=== PATIENT | male | born 1935 | race Asian ===

== ENCOUNTER 2024-07-16 15:33 | Inpatient (IN) | payer MEDICARE, MEDICAID ==
[~2024-07-16] VITALS: Ht 162.6 cm; Wt 64.5 kg
[2024-07-16] MEDS ORDERED: Albuterol/Ipratropium 3 MG-0.5 MG/3 ML Neb Soln IH ONE (16:15)
[2024-07-16 16:27] LABS: BASO # 0.1 K/mm3 (0.0-0.2); BASO % 0.3 % (0.0-2.0); EOS # 0.1 K/mm3 (0.0-0.7); EOS % 0.5 % (0.0-4.0); GRAN # 14.3 K/mm3 (1.4-6.5); GRAN % 85.8 % (42.2-75.2); HEMATOCRIT 38.8 % (42.0-52.0); HEMOGLOBIN 11.8 g/dl (13.5-18.0); LYMPH # 1.3 K/mm3 (1.2-3.4); LYMPH % 7.9 % (20.0-51.0); MEAN CELL VOLUME 96 fl (80.0-100.0); MEAN CORPUSCULAR HEMOGLOBIN 29 pg (27-31); MEAN CORPUSCULAR HGB CONC 30 g/dl (33.0-37.0); MEAN PLATELET VOLUME 9.5 fl (7.4-10.4); MONO # 0.9 K/mm3 (0.1-0.6); MONO % 5.2 % (1.7-9.3); PLATELET COUNT 182 K/mm3 (130-400); RED BLOOD COUNT 4.05 M/mm3 (4.20-5.60); REDCELL DISTRIBUTION WIDTH-CV 12.5 % (11.5-14.5)
[2024-07-16 16:38] LABS: ALBUMIN 3.6 g/dL (3.4-4.8); BILIRUBIN,TOTAL 0.4 mg/dL (0.2-1.2); CREATININE, serum 1.22 mg/dL (0.72-1.25); POTASSIUM 5.2 mEq/L (3.5-4.5); TOTAL PROTEIN 7.1 g/dl (6.2-8.1)
[2024-07-16 16:44] LABS: TROPONIN-I 0.015 ng/mL (0.00-0.033)
[2024-07-16] MEDS ORDERED: NS 1,000 ML IV ONE (17:30)
[2024-07-16 17:58] LABS: ARTERIAL BLD GAS O2 SATURATION 97.4 % (92-100); ARTERIAL BLD GAS TCO2 CT 29.3; ARTERIAL BLOOD GAS BASE EXCESS 2.9 (-2-2); ARTERIAL BLOOD GAS PCO2 44.9 mmHg (35-45); ARTERIAL BLOOD GAS PO2 93.9 mmHg (80-100); ARTERIAL BLOOD GAS pH 7.41 (7.35-7.45)
[2024-07-16] MEDS ORDERED: ASPIRIN E.C. 8181 MG PO (18:27)
[2024-07-16] MEDS ORDERED: BREO ELLIPTA 21 EACH IH (18:28)
[2024-07-16] MEDS ORDERED: LEXAPRO20 MG PO (18:29)
[2024-07-16] MEDS ORDERED: PRIL40 PO (18:30)
[2024-07-16] MEDS ORDERED: LASIX 20MG TABL20 MG PO (18:30)
[2024-07-16] MEDS ORDERED: CALAN120 MG PO (18:31)
[2024-07-16] MEDS ORDERED: TYLENOL 500MG500 MG PO ×2 (18:32→19:00)
[2024-07-16] MEDS ORDERED: ALBUTEROL0.83 MG/ML IH (18:33)
[2024-07-16] MEDS ORDERED: MIRALAX PA17 GM/Dose PO (18:34)
[2024-07-16] MEDS ORDERED: REMERON30 MG PO (18:35)
[2024-07-16] MEDS ORDERED: ZYPREXA2.5 MG PO (18:36)
[2024-07-16] MEDS ORDERED: LAMICTAL 25MG T25 MG PO (18:49)
[2024-07-16] MEDS ORDERED: TYLENOL SU650 MG/SUP RC (18:52)
[2024-07-16] MEDS ORDERED: COZAAR 25MG25 MG/TAB PO (18:55)
[2024-07-16] MEDS ORDERED: IMODIUM 2MG CAPS2 MG PO (18:57)
[2024-07-16] MEDS ORDERED: MILK OF MA400 MG/52 PO (18:58)
[2024-07-16] MEDS ORDERED: ROBITUSSIN100 MG/5 M PO (18:58)
[2024-07-16] MEDS ORDERED: DULCOLAX TAB5 MG PO (18:58)
[2024-07-16] MEDS ORDERED: GENTLE LAXATIVE10 MG RC (18:58)
[2024-07-16] MEDS ORDERED: RICOLA HERB TH1 EACH MM (18:59)
[2024-07-16] MEDS ORDERED: ZOFRAN 4MG T4 MG/TAB PO (18:59)
[2024-07-16] MEDS ORDERED: MYLANTA MAXIMU355 M1 PO (18:59)
[2024-07-16] MEDS ORDERED: Bisacodyl 5 MG TAB PO PRN (19:00)
[2024-07-16] MEDS ORDERED: Acetaminophen 500 MG TAB PO PRN (19:00)
[2024-07-16] MEDS ORDERED: Formoterol 20 MCG,Budesonide 0.5 MG IH SCH (19:00)
[2024-07-16] MEDS ORDERED: guaiFENesin Oral Soln 200 MG/10 ML UD PO PRN (19:00)
[2024-07-16] MEDS ORDERED: lamoTRIgine 25 MG TAB PO SCH (19:30)
[2024-07-16] MEDS ORDERED: OLANZapine 5 MG TAB PO SCH (19:30)
[2024-07-16] MEDS ORDERED: Albuterol/Ipratropium 3 MG-0.5 MG/3 ML Neb Soln IH PRN (19:30)
[2024-07-16] MEDS ORDERED: Albuterol/Ipratropium 3 MG-0.5 MG/3 ML Neb Soln IH SCH (20:00)
--- NOTE | 2024-07-16 20:45 | NUR ---
PATIENT ARRIVED TO ROOM VIA BED FROM ED ACCOMPANIED BY CAREGIVER FROM [facility]. TRANSFERRED PATIENT WITH SLIDE BOARD AND CHANGED INTO FALL RISK GOWN. CAREGIVER ASSISTED TO BEST OF HER ABILITY WITH INTAKE DUE TO PATIENT'S ADVANCED DEMENTIA AND INABILTY TO ANSWER QUESTIONS. CAREGIVER STATES THAT PATIENT'S ONLY VOCALIZATIONS ARE YES, NO, AND HELP ME. CALL LIGHT IS WITHIN REACH. BED IS LOCKED AND IN LOW POSITION WITH BED ALARM ON.
[2024-07-16] MEDS ORDERED: Mirtazapine 15 MG TAB PO SCH (21:00)
[2024-07-16] MEDS ORDERED: Acetaminophen 500 MG TAB PO SCH (21:00)
[2024-07-16 21:01] VITALS: BP_SYST 98
[2024-07-16] MEDS ORDERED: NS 1,000 ML IV SCH (21:30)
--- NOTE | 2024-07-16 23:10 | NUR ---
PATIENT HAD BEEN YELLING OUT "HELP ME" AND WAS UNABLE TO BE CONSOLED DESPITE MULTIPLE ATTEMPTS BY THIS RN AND PCT ON UNIT. AT THIS TIME, PATIENT ALSO WOULD NOT KEEP HIS NASAL CANNULA ON, AGAIN DESPITE SEVERAL ATTEMPTS AT DIRECTING, AND HIS OXYGEN SATURATION WAS 81%. CALLED RT LYDIA WHO IS PRESENTLY AT BEDSIDE REASSESSING PATIENT. ALSO CONTACTED HOSPITALIST, SHAYAN BLAIR, AND RECEIVED TELEPHONE ORDER FOR 20 MG IV LASIX AND DC NORMAL SALINE.
[2024-07-16] MEDS ORDERED: Furosemide 40 MG/4 ML VIAL IV ONE (23:15)
--- NOTE | 2024-07-16 23:30 | NUR ---
HOSPITALIST, SHAYAN BLAIR MARBLE CHIP TERRAZZO WORKER, ASSESSED PATIENT AT BEDSIDE. AFTER ADMINISTERING IV LASIX AND STARTING HIS ZOSYN, HE BEGAN TO PULL ON HIS IV TUBING AND WAS ATTEMPTING TO STRIKE STAFF. SHAYAN GAVE VERBAL ORDER FOR BILATERAL MITTEN RESTRAINTS.
--- NOTE | 2024-07-16 23:30 | NUR ---
THIS RT CALLED TO BEDSIDE FOR DESATURATION, PT ON 2L. PT DIAPHORETIC, TACHNYPNEIC, AND SLOW TO RESPOND. PT READJUSTED IN BED AND SAT UP WHEN SATURATIONS BECOME 97% ON 2L. PT IS AUDIBLY WHEEZY, SOUNDING HIGH PITCHED AND ACCOMPANIED BY FINE CRACKLES IN BASE. SHAYAN Ro WRAPPING CLERK SPOKE TOO ABOUT PT CONDITION WHERE I EXPRESSED MY CONCERN ABOUT CHF/FLUID OL. SHE THEN ORDERED LASIX. PT STILL ON 2L AT THIS TIME.
[2024-07-17] VITALS (14 sets, daily range): BP systolic 105–152; BP diastolic 58–104; PULSE 67–109; TEMP 97.9–99.9
--- NOTE | 2024-07-17 | NUR ---
BILATERAL MITTEN RESTRAINTS APPLIED. SINCE PATIENT WILL NOW BE RECEIVING IV LASIX TWICE DAILY AND IS INCONTINENT OF URINE, VERBAL ORDER RECEIVED TO PLACE BATES CATHETER.
--- NOTE | 2024-07-17 00:22 | NUR ---
WITH ASSISTANCE OF TYPESETTER APPRENTICE AND PCT, 16F BATES CATHETER PLACED USING STERILE TECHNIQUE AND BALLOON INFLATED WITH 10CC NORMAL SALINE.
[2024-07-17] MEDS ORDERED: NS 1,000 ML IV SCH (01:30)
--- NOTE | 2024-07-17 01:44 | NUR ---
THIS RN AND PCT WERE ATTEMPTING TO CHANGE PATIENT'S UNDERPAD AND RECHECK VITAL SIGNS AFTER HE HAD CALMED DOWN FROM HIS PREVIOUS AGITATION. PREVIOUS BP PRIOR TO 20 MG IV LASIX WAS 156/104, WHEN RETAKING BP WAS 70s/30s, ELEVATED HIS HEAD AND NEW BP READING WAS 105/64. RT WAS AT BEDSIDE AT SAME TIME TO REASSESS HIS O2 LEVELS AND CALLED HOSPITALIST TO DISCUSS BP INTERVENTIONS. HOSPITALIST ADVISED ADVISED TO RESTART IV NORMAL SALINE AT 50 ML/HR.
--- NOTE | 2024-07-17 06:50 | NUR ---
Pt sleeping in bed with bilateral mitten restraints in place. Call light in reach and bed alarm on.
--- NOTE | 2024-07-17 07:35 | NUR ---
This RN notified Protective Signal Operations Supervisor of Pt's DNH paperwork from [facility]. Per Protective Signal Operations Supervisor, notify nursing home social worker when they arrive.
--- NOTE | 2024-07-17 08:10 | NUR ---
Pt laying in bed. Pt alert to name and birthdate. Unable to reorient Pt to location, situation, or time. S1S2. Clear lungs on 2 L via NC. VSS. ABD round, soft, non-tender with audble bowel sounds. Palpable pulses in all extremities. IV in R hand, patent, NS running at 50 cc/hr. Baker Catheter in place with clear, yellow urine. Bilateral mittens on, no issues. Pt repeats "Help Me Help Me" over and over. Pt does not elaborate or answer questions when nurse or aid ask what he needs help with. Completed daily hygiene, baker care and bed change. Pt laying on Left side supported with pillow. No further needs. Pad call light in reach.
[2024-07-17] MEDS ORDERED: Pantoprazole 40 MG in NS 10 ML IV SCH (09:00)
[2024-07-17] MEDS ORDERED: Furosemide 40 MG/4 ML VIAL IV SCH (09:00)
[2024-07-17] MEDS ORDERED: Escitalopram 10 MG TAB PO SCH (09:00)
--- NOTE | 2024-07-17 10:15 | NUR ---
ALEKS notified by LIZ Michael that patient has DNR/DNH forms on chart. She reports these forms were sent with patient from [facility]. ALEKS called and spoke with Andrea at [facility] who stated she would check on this and return call. She states that "family requested patient to be sent to hospital at the last minute". They are prepared to accept patient back when he is determined to be medically stable ALEKS reviewed chart, no family present. ALEKS attempted to call patient's Guardian/DPSTARR Shook ([phone]) to discuss discharge plan. No answer, unable to leave message. ALEKS attempted to call patient's son Vinod ([phone]), no answer, left message for return call. Per chart, patient resides at [facility], sees Dr. Govea as his PCP and uses [facility] pharmacy. Patient is only listed to use wheelchair. Patient has advanced dementia and unable to answer any questions. Patient will return to LTC at discharge.. Discharge plan: Return to [facility]
--- NOTE | 2024-07-17 12:26 | NUR ---
Clinicals faxed to [facility]. Spoke with Andrea at [facility] to notify patient not discharging back to LTC today.
[2024-07-17 12:32] LABS: BASO % 0.3 % (0.0-2.0); EOS # 0.1 K/mm3 (0.0-0.7); EOS % 0.6 % (0.0-4.0); GRAN # 10.2 K/mm3 (1.4-6.5); GRAN % 85.8 % (42.2-75.2); HEMOGLOBIN 10.7 g/dl (13.5-18.0); LYMPH % 8.2 % (20.0-51.0); MEAN CELL VOLUME 94 fl (80.0-100.0); MEAN CORPUSCULAR HEMOGLOBIN 29 pg (27-31); MEAN CORPUSCULAR HGB CONC 31 g/dl (33.0-37.0); MEAN PLATELET VOLUME 9.7 fl (7.4-10.4); MONO # 0.6 K/mm3 (0.1-0.6); MONO % 4.7 % (1.7-9.3); PLATELET COUNT 150 K/mm3 (130-400); RED BLOOD COUNT 3.71 M/mm3 (4.20-5.60); REDCELL DISTRIBUTION WIDTH-CV 12.8 % (11.5-14.5)
[2024-07-17 12:48] LABS: CREATININE, serum 1.15 mg/dL (0.72-1.25); MAGNESIUM 1.9 mg/dL (1.6-2.6); POTASSIUM 3.6 mEq/L (3.5-4.5)
--- NOTE | 2024-07-17 13:35 | NUR ---
Data: Spiritual care visit attempted during Spray Gunner rounds. RN was administering medications. Patient fell asleep before Spray Gunner could offer visit. Patient has white "mittens" to prevent him from pulling his IV tubing. RN stated that family is expected to visit tomorrow. Assessment: None at this time. Plan of Care: Chaplains will remain available as needed/requested while Patient is admitted to this hospital.
--- NOTE | 2024-07-17 17:08 | NUR ---
Pt became agitated. Tried to administer scheduled olanzapine. Pt refused. Pt removed mits from bilateral hands and started to unwrap IV site. Pt stated "Help me" multiple times. This RN asked Pt "How can we help you?" Pt would not respond. Pt denies being cold, in pain, does not require bathroom. Offered Pt water and applesauce, Pt declined. Mits back on Pt and letting rest. Call light in reach and bed alarm on.
--- NOTE | 2024-07-17 17:37 | NUR ---
Pt increased RR with shallow breathes. Pt lost color to face. Coached Pt through breathing. Pt's breathing returned to normal. Pt remained agitated and continued to pull mits off and pull at lines and Machado catheter. Minimal blood out of catheter. Pt started coughing and breathing heavily (shallow, increased rate). Contacted provider for alternative therapy. Provider notified that Pt continued to spit scheduled Zyprexa out of mouth, even when crushed and in applsauce/pudding. Per MONIKA Rojas, administer Zyprexa 5mg SL NOW. Contacted Retirement Plan Counselor to obtain medication, as not stocked in [facility].
[2024-07-17] MEDS ORDERED: OLANZapine 5 MG Orally-Disinteg TAB PO ONE (17:45)
--- NOTE | 2024-07-17 18:23 | NUR ---
Pt resting comfortably in bed. O2 and RR WNL. Pt refused water at this time. Call light in reach.
--- NOTE | 2024-07-17 19:59 | NUR ---
PATIENT RESTING IN BED WATCHING TV. BILATERAL MITTENS IN USE FOR LINE PROTECTION AND PATIENTS AGITATION. CALL LIGHT IS WITHIN REACH. BED IS LOCKED AND IN LOW POSITION WITH BED ALARM ON. CURRENTLY REFUSING TO FINISH HIS CRUSHED MEDICATIONS. WILL ATTEMPT TO ADMINISTER AGAIN ONCE HE HAS CALMED DOWN.
--- NOTE | 2024-07-17 21:27 | NUR ---
PATIENT CONTINUES TO YELL OUT, SCREAMING "HELP ME" BUT REFUSES ANY CARES AND WHEN RN ATTEMPTS TO PROVIDE CARE, HE STRIKES WITH HIS MITTED HANDS AND ATTEMPTS TO BITE. AGAIN ATTEMPTED TO GIVEN EVENING MEDS, PATIENT AGAIN SCREAMED IN RN'S FACE AND STATED "I SAID NO". CALL PLACED TO HOSPITALIST, SHAYAN BLAIR, TO DISCUSS POSSIBLE MANAGEMENT OF BEHAVIOR, HOSPITALIST IS GOING TO DISCUSS WITH PHARMACY TO SEE WHAT MEDICATION CAN BE GIVEN HE HAS ALLERGIES TO AMBIEN AND ATIVAN AND IS REFUSING ANY PO MEDICATIONS.
[2024-07-17] MEDS ORDERED: Haloperidol Lactate 5 MG/ML VIAL IM ONE ×2 (21:30→23:45)
--- NOTE | 2024-07-18 00:30 | NUR ---
THIS RN NOTICED BLOOD IN CATHETER BAG AND IN TUBING WHILE PATIENT WAS EXTREMELY AGITATED. STAT LOCK IS STILL IN PLACE ON INNER RIGHT THIGH AND CATHETER HAS NOT BEEN DISLODGED. SINCE FIRST NOTICING BLOOD, COLOR HAS APPEARED TO LIGHTEN UP SLIGHTLY. CALL PLACED TO HOSPITALIST AND ADVISED TO CONTINUE TO MONITOR.
[2024-07-18 01:00] VITALS: BP_SYST 119
[2024-07-18 04:00] VITALS: BP 106/64; PULSE 90; TEMP 99
[2024-07-18 04:24] VITALS: BP_SYST 106
--- NOTE | 2024-07-18 04:24 | NUR ---
PATIENT HAS CONTINUED TO HAVE BLOOD IN CATHETER TUBING AND BAG, WELL LEAKING OUT OF URETHRA AROUND THE CATHETER. TAX ASSOCIATE AND MUSIC COPYIST ASSISTED THIS RN AT BEDSIDE TO FLUSH CATHETER USING 50ML SYRINGE AND STERILE SALINE. REPOSITIONED STATLOCK TO ATTEMPT TO PREVENT PATIENT FROM FURTHER PULLING ON TUBING. DISCUSSED SITUATION AGAIN WITH HOSPITALIST, IF BLEEDING AND LEAKAGE PERSISTS AFTER IRRIGATION, ADVISED TO DC CATHETER.
[2024-07-18 07:25] LABS: BASO % 0.2 % (0.0-2.0); EOS # 0.1 K/mm3 (0.0-0.7); EOS % 0.7 % (0.0-4.0); GRAN % 83.2 % (42.2-75.2); HEMOGLOBIN 10.8 g/dl (13.5-18.0); LYMPH # 0.9 K/mm3 (1.2-3.4); LYMPH % 8.7 % (20.0-51.0); MEAN CELL VOLUME 94 fl (80.0-100.0); MEAN CORPUSCULAR HEMOGLOBIN 29 pg (27-31); MEAN CORPUSCULAR HGB CONC 31 g/dl (33.0-37.0); MEAN PLATELET VOLUME 9.9 fl (7.4-10.4); MONO # 0.7 K/mm3 (0.1-0.6); MONO % 6.7 % (1.7-9.3); PLATELET COUNT 148 K/mm3 (130-400); RED BLOOD COUNT 3.69 M/mm3 (4.20-5.60); REDCELL DISTRIBUTION WIDTH-CV 12.9 % (11.5-14.5)
[2024-07-18 07:27] LABS: HEMATOCRIT 34.6 % (42.0-52.0)
[2024-07-18 07:39] LABS: CALCIUM 9.2 mg/dL (8.4-10.2); CREATININE, serum 1.17 mg/dL (0.72-1.25); POTASSIUM 3.8 mEq/L (3.5-4.5)
[2024-07-18 08:05] VITALS: BP 151/81; PULSE 89; TEMP 97.8
--- NOTE | 2024-07-18 08:47 | NUR ---
Patient resting in bed, with eyes closed. Hygiene was provided since he had an incontinent small BM. Catheter baker with pink output. Mittens were removed and patient has been calm and cooperative. Medications were crushed and given with applesauce. Assissted with breakfast. Linens changed, clean gown. He already had his breathing treatment. Continues with 2L NC. Assessment completed. No further needs at this time. Call light within reach.
[2024-07-18 08:50] VITALS: BP_SYST 151
--- NOTE | 2024-07-18 10:09 | NUR ---
Call received from a woman who states is the daughter of the patient that lives in [place] asking for pt health information. She did not know the password. Encourage her to be in contact with [facility] to get it or have more updates.
--- NOTE | 2024-07-18 11:08 | NUR ---
Patient sleeping, TV on.
[2024-07-18] MEDS ORDERED: AMOXICILLIN/CLA1 TA1 PO (11:20)
[2024-07-18 13:00] VITALS: BP_SYST 151
--- NOTE | 2024-07-18 13:43 | NUR ---
ALEKS notified by attending Dr. Carnes that patient is stable for return to [facility] today. SW sent discharge orders and clinical updates to [facility]. Spoke with Andrea in admissions to notify of patient return to LTC. Transportation arranged for 1415. RN notified of transport time.
--- NOTE | 2024-07-18 14:10 | NUR ---
Report given to LIZ Peters, at [facility]. Pt to be picked up at apro 1430 hrs. Cath baker removed without issues. Hygiene provided. Changed into his clothes. Awaiting for [facility] Transportation. and DPOA at bedside.
--- NOTE | 2024-07-18 14:12 | NUR ---
IV ACCESS DISCONTINUED.
--- NOTE | 2024-07-18 14:39 | NUR ---
Patient was picked up by [employer] retail service representative.
== END 2024-07-18 14:35 | DRG 871 ==
LOC: COL.ER 15:33 → MEDICAL 18:06
PROVIDERS: Physician Assistant; ADMIT Internal Medicine
DX: A41.9 Sepsis, unspecified organism (principal); J96.01 Acute respiratory failure with hypoxia; N17.9 Acute kidney failure, unspecified; F23 Brief psychotic disorder; J44.9 Chronic obstructive pulmonary disease, unspecified; E87.5 Hyperkalemia; N18.9 Chronic kidney disease, unspecified; D64.9 Anemia, unspecified; E78.5 Hyperlipidemia, unspecified; I48.91 Unspecified atrial fibrillation; E11.9 Type 2 diabetes mellitus without complications; I48.0 Paroxysmal atrial fibrillation; G20.A1 Parkinson's disease without dyskinesia, without mention of fluctuations; G30.9 Alzheimer's disease, unspecified; F02.80 Dementia in other diseases classified elsewhere, unspecified severity, without behavioral disturbance, psychotic disturbance, mood disturbance, and anxiety; I12.9 Hypertensive chronic kidney disease with stage 1 through stage 4 chronic kidney disease, or unspecified chronic kidney disease; Z86.73 Personal history of transient ischemic attack (TIA), and cerebral infarction without residual deficits
CPT/HCPCS: A4314; J1630; J1650; J1940; J2470; J2543; J7030